=== PATIENT | male | born 1975 | race Caucasian/White ===

== ENCOUNTER 2021-08-23 13:13 | Outpatient (CLI) | payer MEDICARE, SELFPAY ==
[2021-08-23 14:31] LABS: INR 10.52 (0.8-1.2)
== END 2021-08-23 13:14 | disposition home or self-care (01) ==
LOC: LAB 13:21
PROVIDERS: PCP Family Medicine; Visit Provider Family Medicine
DX: T14.8XXA Other injury of unspecified body region, initial encounter (principal); X58.XXXA Exposure to other specified factors, initial encounter
CPT/HCPCS: 85610

== ENCOUNTER 2021-09-11 16:38 | Emergency (ER) | payer MEDICARE, SELFPAY ==
[2021-09-11 16:48] VITALS: BP 126/77; PULSE 69; RESP 14; TEMP 36.7; O2SAT 97; BMI 29.8
--- NOTE | 2021-09-11 17:20 | W.ED.AMS ---
HPI - Altered Mental Status General: Chief Complaint: Altered Mental Status Stated Complaint: Confusion, Numbness, slurred speech Time Seen by Provider: 09/11/21 17:20 History of Present Illness: Mr. Collins is a 46-year-old gentleman with history of stroke and epilepsy who presents to the emergency department due to mental status change. He is accompanied by significant other who provide supplemental history. He was on Coumadin until a while ago when COVID affected his ability to manage INR levels and he was significantly supratherapeutic so has been off anticoagulation since that time. Starting Friday he began to have episodes of confusion or staring off during conversation and taking an extended period of time to respond. Apparently this is similar to his prior stroke as he did not have weakness or other focal findings on the previous stroke. Overall course of symptoms has persisted. Patient does endorse headache which is frontal in nature and moderate intensity though he frequently gets headaches since stroke and this is not significantly different. Denies infectious symptoms or neck pain. No other specific changes in health, exacerbating, or alleviating factors identified. Onset (ago): day(s) Severity: moderate Consistency of symptoms: Waxing and Waning Review of Systems General: Reports: 10 or more systems reviewed and unremarkable except in HPI and below PFSH ED PFSH: Medical History (Updated 09/19/21 @ 00:00 by ) Epilepsy Stroke Surgical History (Updated 09/11/21 @ 18:23 by Dao Nagel MD) History of orthopedic surgery Social History (Updated 09/11/21 @ 18:23 by Doa Nagel MD) Smoking and tobacco status: current every day smoker Physical Exam Const: COMMON NORMALS: patient oriented x3 and alert GENERAL APPEARANCE: cooperative and well developed HENMT: COMMON NORMALS: normocephalic and atraumatic HEAD & SCALP: normocephalic and atraumatic Eye: COMMON NORMALS: conjunctivae normal CONJUNCTIVA: Yes conjunctivae normal SCLERA: sclerae normal Neck/C-Spine: COMMON NORMALS: supple GENERAL: Yes trachea midline Resp: COMMON NORMALS: normal respiratory effort and clear to auscultation bilaterally EFFORT & INSPECTION: Yes able to speak in complete sentences AUSCULTATION: clear to auscultation bilaterally Cardio: COMMON NORMALS: regular rate and regular rhythm RATE: regular rate RHYTHM: regular rhythm GI: COMMON NORMALS: Soft to palpation PALPATION: Yes Soft to palpation and No Tenderness to palpation present (GI) PERCUSSION: normal to percussion Extremity: GENERAL: Yes normal exam except as noted and No edema Neuro: COMMON NORMALS: patient oriented x3, CN's II-XII intact bilaterally, moves all extremities, no focal motor deficits and no sensory deficits noted SENSORIUM/ORIENTATION: Yes alert and No Orientation impaired Psych: COMMON NORMALS: mental status grossly normal and Normal thought process present THOUGHT PROCESS: Normal thought process present Course ED course: - Patient was seen and evaluated by me at bedside - Patient placed on cardiac monitors, IV access obtained - Initial evaluation notable for exam as above. - Labs personally interpreted by me -Fluids and symptom treatment ordered - Labs notable for no leukocytosis, normal hemoglobin. Metabolic panel with perhaps mild evidence of dehydration. No clear explanation for patient's symptoms. - Imaging notable for no acute finding on head CT. - Upon serial reexamination after treatment the patient was significantly improved - Based on patient history, evaluation, and testing as interpreted the most likely cause of the patient's condition is unclear. Possibly related to complex migraine - The results of ED evaluation were discussed with the patient including prescriptions and/or symptomatic cares (if applicable) including appropriate and responsible use, followup plan, and return precautions. The patient verbalized understanding and felt safe for discharge. - Patient discharged in satisfactory condition. Note: Click bubbles or prepopulated lockwood in note writing are used for assistance with data collection and billing and are inherently more limited than narrative and other text portions of this note. Please use narrative for additional clinical history and defer to narrative/free test for any case of contradictory information. If information appears in only free text or click bubble it should be considered present or absent as reported. Please contact note loan underwriter for clarifications of clinical information or contradictory information. MDM is a brief summary, contradictory or erroneous seeming information should be clarified and full note should be reviewed. Vital Signs: Vital signs: Vital Signs Temperature 98.1 F 09/11/21 16:48 Pulse Rate 69 09/11/21 16:48 Respiratory Rate 14 09/11/21 16:48 Blood Pressure 126/77 09/11/21 16:48 Pulse Oximetry 97 09/11/21 16:48 MDM - Altered Mental Status Medical Decision Making 46-year-old gentleman with complex past medical history presenting with headache and other neurologic symptoms. Exam is nonfocal on evaluation. Patient not a tPA candidate given duration of symptoms. Patient significantly improved with migraine cocktail and feels comfortable with discharge. Strict return precautions and follow-up plan given. Medical Records I reviewed the patient's medical records. Lab Data I reviewed the patient's lab results. : 09/11/21 18:00 09/11/21 18:[address] 09/11/21 17:42 IMPRESSION: 1. Old infarcts as described. 2. No acute intracranial finding Laboratory Results WBC 5.0 10^3/uL (4.0-10.0) 09/11/21 18:00 RBC 4.19 10^6/uL (4.1-5.3) 09/11/21 18:00 Hgb 12.6 g/dL (11.7-16.6) 09/11/21 18:00 Hct 36.5 % (42.0-52.0) L 09/11/21 18:00 MCV 87.1 fl (80-94) 09/11/21 18:00 MCH 30.1 pg (28.0-34.0) 09/11/21 18:00 MCHC 34.5 g/dL (30.0-36.0) 09/11/21 18:00 RDW 13.2 % (12.1-15.1) 09/11/21 18:00 Plt Count 146 10^3/cmm (130-400) 09/11/21 18:00 MPV 9.8 fL (7.4-10.4) 09/11/21 18:00 Neut % (Auto) 74.0 % 09/11/21 18:00 Lymph % (Auto) 18.2 % 09/11/21 18:00 Miner % (Auto) 6.0 % 09/11/21 18:00 Eos % (Auto) 1.2 % 09/11/21 18:00 Baso % (Auto) 0.2 % 09/11/21 18:00 Neut # (Auto) 3.69 10^3/uL (1.8-7.7) 09/11/21 18:00 Lymph # (Auto) 0.9 10^3/uL (0.8-4.8) 09/11/21 18:00 Miner # (Auto) 0.3 10^3/uL (0.2-0.9) 09/11/21 18:00 Eos # (Auto) 0.1 10^3/uL (0.0-0.8) 09/11/21 18:00 Baso # (Auto) 0.0 10^3/uL (0.0-0.1) 09/11/21 18:00 Nucleated RBC % (auto) 0 % 09/11/21 18:00 Nucleated RBCs # 0.0 /100WBC 09/11/21 18:00 PT 13.60 SECONDS (12.1-14.9) 09/11/21 18:00 INR 1.01 (0.8-1.2) 09/11/21 18:00 APTT 91.2 SECONDS (23.9-36.7) H 09/11/21 18:00 Sodium 141 mmol/L (136-145) 09/11/21 18:00 Potassium 3.8 mmol/L (3.5-5.1) 09/11/21 18:00 Chloride 105 mmol/L (98-107) 09/11/21 18:00 Carbon Dioxide 25 mmol/L (22-29) 09/11/21 18:00 Anion Gap 14.8 (5-19) 09/11/21 18:00 BUN 21 mg/dL (6-20) H 09/11/21 18:00 Creatinine 1.3 mg/dL (0.7-1.2) H 09/11/21 18:00 GFR Calculation 60.0 mL/min (90-130) L 09/11/21 18:00 Glucose 85 mg/dL (65-115) 09/11/21 18:00 POC Glucose 82 mg/dL (70-110) 09/11/21 17:56 Calculated Osmolality 294 mOsm/kg (285-295) 09/11/21 18:00 Calcium 9.2 mg/dL (8.5-10.5) 09/11/21 18:00 Total Bilirubin 0.3 mg/dL (0.15-1.2) 09/11/21 18:00 AST 25 U/L (0-40) 09/11/21 18:00 ALT 36 U/L (0-41) 09/11/21 18:00 Alkaline Phosphatase 102 IU/L (40-130) 09/11/21 18:00 Ammonia 13 umol/L (16-60) L 09/11/21 18:32 Total Protein 6.6 g/dL (6.6-8.7) 09/11/21 18:00 Albumin 4.4 g/dL (3.5-5.2) 09/11/21 18:00 Globulin 2.2 g/dL (1.3-4.6) 09/11/21 18:00 TSH 1.93 uIU/mL (0.27-4.20) 09/11/21 18:00 Urine Color Yellow (Yellow) 09/11/21 19:40 Urine Appearance Clear (CLEAR) 09/11/21 19:40 Urine pH 6 (5-7) 09/11/21 19:40 Ur Specific [place] 1.020 (1.005-1.030) 09/11/21 19:40 Urine Protein Neg (Negative) 09/11/21 19:40 Urine Glucose (UA) Norm (Normal) 09/11/21 19:40 Urine Ketones 1+ (Negative) H 09/11/21 19:40 Urine Blood Neg (Negative) 09/11/21 19:40 Urine Nitrate Negative (Negative) 09/11/21 19:40 Urine Bilirubin Neg (Negative) 09/11/21 19:40 Urine Urobilinogen Norm mg/dL (Negative) 09/11/21 19:40 Ur Leukocyte Esterase Negative (Negative) 09/11/21 19:40 Carbamazepine 8.4 ug/mL (4.0-12.0) 09/11/21 18:00 Discharge Plan Discharge Patient Disposition: Home Clinical Impression: Altered mental status Condition: Stable Discharge Orders: Discharge ED (Routine); Ordered 09/11/21 Ordered By: Dao Nagel Referrals: Bandar Mosley MD [Primary Care Provider] - Discharge Diet: Usual diet Discharge Activity: Limit activity as instructed Patient Instructions: Altered Mental Status (ED) Activity Restrictions/Additional Instructions: Thank you for visiting the emergency department. You were seen evaluated for abnormal neurologic events. The exact cause of the symptoms is unclear. I recommend follow-up with neurology and your primary care provider. It is possible that these are related to focal seizures that require further evaluation though I do not see evidence of seizure currently. If these are breakthrough seizures despite medication you likely need medication adjustment. You should not drive, operate machinery, climb tall objects, cook over open flames, swim, or bathe in a bathtub, or otherwise perform dangerous tasks or you to have another event. Please return to the emergency department for any new neurologic symptoms, seizures, or anything else that you are concerned about a feel needs emergency department evaluation. Coding Level of Care Code ED Heat Treatment Technician for Meet Fwd Exam Comprehensive
--- NOTE | 2021-09-11 17:42 | CTR_ITS ---
PROCEDURE INFORMATION: Exam: CT Head Without Contrast Exam date and time: 09/11/2021 6:55 PM Age: 46 years old Clinical indication: Altered mental status/memory loss; Additional info: AMS, HX of prior CVA and epilepsy TECHNIQUE: Imaging protocol: Computed tomography of the head without contrast. Radiation optimization: All CT scans at this facility use at least one of these dose optimization techniques: automated exposure control; mA and/or kV adjustment per patient size (includes targeted exams where dose is matched to clinical indication); or iterative reconstruction. COMPARISON: MR Head w wo Contrast 09/19/2014 11:18 AM RADIATION DOSE METRICS: Total DLP (mGy-cm): 1066.38 FINDINGS: Brain: There is large chronic right posterior parietal infarct not significantly changed compared with 08/27/2014. There is chronic infarct in the right frontal lobe extending into the right frontal operculum which is new compared with previous examination but chronic. There is no intracranial mass, in appearance hemorrhage or edema. Cerebral ventricles: Ventricles are within normal limits of size. Paranasal sinuses: Visualized sinuses are unremarkable. No fluid levels. Mastoid air cells: Visualized mastoid air cells are well aerated. Bones/joints: No calvarial fracture is demonstrated. Soft tissues: There are calcified subcutaneous scalp lesions, 1 in the left frontal lobe in the other in the right parietal region which are larger than on 09/04/2014. CT/CT head wo con* [id number] IMPRESSION: 1. Old infarcts as described. 2. No acute intracranial finding
--- NOTE | 2021-09-11 17:43 | ECG_ITS ---
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 Measurements Intervals [place] Rate: 64 P: 31 MI: 156 QRS: -1 QRSD: 97 T: -10 QT: 372 QTc: 384 Interpretive Statements SINUS RHYTHM LOW QRS VOLTAGE IN PRECORDIAL LEADS [QRS DEFLECTION < 1.0 mV IN CHEST LEADS] NONSPECIFIC T-WAVE ABNORMALITY Compared to ECG 09/04/2014 22:16:38 Low QRS voltage now present T-wave abnormality now present Electronically Signed On 09-12-2021 17:58:39 CDT by Paul Pink M.D. [id number] f
[2021-09-11 18:19] LABS: Basophils % 0.2 %; Eosinophils # 0.1 10^3/uL (0.0-0.8); Eosinophils % 1.2 %; Hematocrit 36.5 % (42.0-52.0); Hemoglobin 12.6 g/dL (11.7-16.6); Lymphocytes # 0.9 10^3/uL (0.8-4.8); Lymphocytes % 18.2 %; Mean Corpuscular HGB Conc 34.5 g/dL (30.0-36.0); Mean Corpuscular Hemoglobin 30.1 pg (28.0-34.0); Mean Corpuscular Volume 87.1 fl (80-94); Mean Platelet Volume 9.8 fL (7.4-10.4); Monocytes # 0.3 10^3/uL (0.2-0.9); Neutrophils # 3.69 10^3/uL (1.8-7.7); Nucleated Red Blood Cells % 0 %; Platelet Count 146 10^3/cmm (130-400); Red Blood Count 4.19 10^6/uL (4.1-5.3); Red Cell Distribution Width 13.2 % (12.1-15.1)
[2021-09-11 18:29] LABS: INR 1.01 (0.8-1.2)
[2021-09-11 18:39] LABS: Partial Thromboplastin Time 91.2 SECONDS (23.9-36.7)
[2021-09-11 18:47] LABS: Alanine Aminotransferase 36 U/L (0-41); Albumin Level 4.4 g/dL (3.5-5.2); Alkaline Phosphatase 102 IU/L (40-130); Anion Gap 14.8 (5-19); Aspartate Amino Transferase 25 U/L (0-40); Blood Urea Nitrogen 21 mg/dL (6-20); Calcium 9.2 mg/dL (8.5-10.5); Carbon Dioxide 25 mmol/L (22-29); Chloride 105 mmol/L (98-107); Globulin 2.2 g/dL (1.3-4.6); Glucose 85 mg/dL (65-115); Osmolality Calculated 294 mOsm/kg (285-295); Potassium 3.8 mmol/L (3.5-5.1); Sodium 141 mmol/L (136-145); Thyroid Stimulating Hormone 1.93 uIU/mL (0.27-4.20); Total Bilirubin 0.3 mg/dL (0.15-1.2); Total Protein 6.6 g/dL (6.6-8.7)
[2021-09-11 18:54] LABS: Ammonia 13 umol/L (16-60)
[2021-09-11 20:01] LABS: Add Urine Microscopic? NO; Charge for UA Resulting for Rev
[2021-09-11 20:08] LABS: Urine Appearance Clear (CLEAR); Urine Color Yellow (Yellow)
[2021-09-11 20:09] LABS: Bilirubin Urine Neg (Negative); Blood Urine Neg (Negative); Glucose Urine UA Norm (Normal); Ketones Urine 1+ (Negative); Leukocyte Esterase Urine Negative (Negative); Nitrate Urine Negative (Negative); Protein Urine Neg (Negative); Urobilinogen Urine Norm (Negative); pH Urine 6 (5-7)
[2021-09-11] MEDS: sodium chloride 0.9% 1,000 ML 999 ML IV (21:00)
[2021-09-11] MEDS: ketorolac 30 mg/mL INJ 15 MG IVP (21:00)
[2021-09-11] MEDS: diphenhydrAMINE 50 mg/mL SDV 1mL 25 MG IVP (21:00)
[2021-09-11] MEDS: metoclopramide 5 mg/mL SDV 2 mL 10 MG IVP (21:02)
[2021-09-11 21:03] LABS: Carbamazepine Tegretol 8.4 ug/mL (4.0-12.0)
[2021-09-12 06:45] LABS: Glucose Point of Care 82 mg/dL (70-110)
== END 2021-09-11 22:07 | disposition home or self-care (01) ==
PROVIDERS: Emergency Provider Emergency Medicine; PCP Family Medicine
DX: R41.82 Altered mental status, unspecified (principal); Z86.73 Personal history of transient ischemic attack (TIA), and cerebral infarction without residual deficits; F17.210 Nicotine dependence, cigarettes, uncomplicated
CPT/HCPCS: 36416; 70450; 80053; 80156; 81003; 82140; 82962; 84443; 85025; 85610; 85730; 93005; 96374; 96375; 99285; J1200; J1885; J2765; J3475; J7030

== ENCOUNTER → 2021-11-05 10:03 | Outpatient (BNVA) | payer MEDICARE, SELFPAY | PROVIDERS: PCP Family Medicine; Visit Provider Internal Medicine Cardiovascular Disease | DX: I34.0 Nonrheumatic mitral (valve) insufficiency (principal); Z86.69 Personal history of other diseases of the nervous system and sense organs; Z86.73 Personal history of transient ischemic attack (TIA), and cerebral infarction without residual deficits; R23.3 Spontaneous ecchymoses; I33.0 Acute and subacute infective endocarditis; I77.9 Disorder of arteries and arterioles, unspecified; E78.5 Hyperlipidemia, unspecified; Z87.891 Personal history of nicotine dependence | CPT/HCPCS: 99204 ==

== ENCOUNTER 2021-12-06 12:15 | Outpatient (CLI) | payer MEDICARE, SELFPAY ==
--- NOTE | 2021-12-06 12:36 | MR_ITS ---
WS: [id number] MRI HEAD WITHOUT CONTRAST TECHNIQUE: Sagittal T1, T2 axial, T2 axial FLAIR, axial and coronal T1 images, axial susceptibility w eighted imaging, axial diffusion weighted images, and coronal T2 images were obtained. CLINICAL INFORMATION: CVA COMPARISON: CT September 11, 2021. MRI September 19, 2014 FINDINGS: No evidence of restricted diffusion to suggest acute ischemia. Ventricular system and basal cisterns are patent. Chronic infarcts with encephalomalacia and gliosis involving the RIGHT frontal lobe near the vertex and RIGHT parietal occipital lobe with encephalomalacia and gliosis. Small amount of asso ciated hemosiderin in the RIGHT parietal infarct. Mild ex vacuo dilatation RIGHT lateral ventricle. R IGHT frontal infarct is new since 2014 but has a chronic appearance. Normal posterior fossa. Normal v ascular flow voids at the skull base. No extra Axial fluid collections. Paranasal sinuses and mastoid air cells well aerated. Normal tile layer drainage ior nasopharynx. Normal parapharyngeal fat. Normal optic chiasm and pituitary infundibulum. Temporal lobes and hippocampal formations are normal in appearance. MR/MR head wo con* [id number] IMPRESSION: 1. No evidence of restricted diffusion to suggest acute ischemia 2. Moderate small vessel changes with moderate parenchymal volume loss. 3. Chronic infarcts in the RIGHT frontal lobe and RIGHT parietal occipital ad ction extending into the superior RIGHT temporal lobe. Small amount of associat ed hemosiderin. Associated encephalomalacia and gliosis. 4. RIGHT frontal infarct is new since 2014 but has a chronic appearance. This was present on the prior CT September 11, 2021 and likely subacute at that time. 5. Ex vacuo dilatation RIGHT lateral ventricle. 6. No other suspicious findings.
== END 2021-12-06 12:16 | disposition home or self-care (01) ==
PROVIDERS: PCP Family Medicine; Visit Provider Family Medicine
DX: I63.9 Cerebral infarction, unspecified (principal)
CPT/HCPCS: 70551

== ENCOUNTER 2021-12-26 13:06 | Outpatient (CLI) | payer MEDICARE, SELFPAY ==
--- NOTE | 2021-12-26 13:30 | USCV_ITS ---
Maikel Collins Age: 46 Gender: M : 1975 Exam Date: 12/26/2021 13:48 Ordering Phys: Candido Sanchez MD ([email or web address]) Technologist: BARON [place] [facility] [place]: MITRAL REGURG/VEGITATION BP: 139 / 85 HR: 35 Rhythm: Sinus Technical Quality: Adequate MEASUREMENTS (Male / Female) Normal Values 2D ECHO LVOT Diameter 2.0 cm LV Ejection Fraction MOD 2C 61.0 % LV Ejection Fraction 2C AL 61.7 % LA Diameter 3.8 cm LA Width 4.7 cm LA Height 4.8 cm RA Width 3.3 cm RA Height 5.3 cm Aorta at Sinotubular Diameter 2.6 cm IVC Diameter 2.1 cm M-MODE Aortic Annulus Diameter 2.8 cm LA Ao Ratio MM 1.3 MV E Point Septal Separation 0.3 cm DOPPLER AV Peak Velocity 143.0 cm/s LVOT Peak Velocity 119.0 cm/s AV Area Cont Eq vti 2.8 cm squared AV Area Cont Eq pk 2.6 cm squared MV Peak Velocity 150.0 cm/s MV Area PHT 3.1 cm squared Mitral E to A Ratio 1.3 MV E' Velocity 75.0 cm/s Mitral E to MV E' Ratio 10.7 Mitral E to LV E' Lateral Ratio 9.2 Mitral E to LV E' Septal Ratio 13.0 TR Peak Velocity 244.5 cm/s TR Peak Gradient 23.9 mmHg TR Mean Velocity 246.8 cm/s TR Mean Gradient 24.8 mmHg TR Velocity Time Integral 98.7 cm TV Peak E Velocity 67.0 cm/s Right Atrial Pressure 3.0 mmHg Pulmonary Artery Systolic Pressu 26.9 mmHg PV Peak Velocity 132.0 cm/s RV Acceleration Time 0.2 s RV Ejection Time 0.3 s RV AcT/ET 0.6 FINDINGS Left Ventricle Normal left ventricular size and systolic function, EF 64 %. No regional wall motion abnormalities. Right Ventricle The right ventricle is normal in size and function. Right Atrium The right atrium is normal in size. Left Atrium Mildly increased left atrial size. Mitral Valve Possibly severe mitral valve regurgitation. Aortic Valve No gross abnormalities noted Tricuspid Valve Trace tricuspid valve regurgitation. Pulmonic Valve Trace pulmonary valve regurgitation. Pericardium Normal pericardium without effusion. Aorta Normal ascending aorta dimension. IVC Normal inferior vena cava. CONCLUSIONS Normal left ventricular size and systolic function, EF 64 %. No regional wall motion abnormalities. Mildly increased left atrial size. Possibly severe mitral valve regurgitation. Trace tricuspid valve regurgitation. Estimated pulmonary artery peak systolic pressure of 27 mmHg Trace pulmonary valve regurgitation. There is no pericardial effusion. There are no intracardiac masses. Compared to the study from 03/11/2014 there is worsening of the mitral regurgitation Dr Candido Sanchez MD [facility] (Electronically Signed) Final Date: 27 December 2021 21:57 S
--- NOTE | 2021-12-26 14:15 | USCV_ITS ---
Maikel Collins Age: 46 Gender: M : 1975 Exam Date: 12/26/2021 13:34 Ordering Phys: Candido Sanchez MD ([email or web address]) Technologist: BARON Exam Location: [facility] [place] Indication: CURRENT CVA Risk Factors: Previous Vascular Surgery: Right Brachial BP: / Left Brachial BP: / Right Left Velocity (cm/s) Spectral Plaque Velocity (cm/s) Spectral Plaque Syst/Diast Broadening Syst/Diast Broadening 112.80/28.20 Prox CCA 152.70/ 27.20 119.10/36.40 Mid CCA 158.50/ 41.90 106.90/25.40 Distal CCA 118.00/ 33.10 59.50/ 25.40 Prox ICA 83.00 / 27.30 97.60/ 33.50 Mid ICA 86.30 / 31.00 59.20/ 17.70 Distal ICA 89.10 / 34.70 110.30 ECA 112.40 0.82 ICA/CCA 0.56 Antegrade Vertebral Antegrade 62.40/ 15.40 cm/s 65.10/ 15.40 cm/s Tri Subclavian Tri 127.9 163.5 0 0 FINDINGS Intimal thickening at the bifurcations and common carotid arteries bilaterally antegrade flow in the vertebral arteries bilaterally Normal Doppler flow velocities in the external carotid and subclavian arteries bilaterally CONCLUSIONS Intimal thickening at the bifurcations and common carotid arteries bilaterally . No unstable plaques or lesions based on the above findings Dr Candido Sanchez MD [facility] (Electronically Signed) Final Date: 31 December 2021 07:28 S
== END 2021-12-26 13:07 | disposition home or self-care (01) ==
LOC: RAD 13:07
PROVIDERS: PCP Family Medicine; Visit Provider Internal Medicine Cardiovascular Disease
DX: Z86.73 Personal history of transient ischemic attack (TIA), and cerebral infarction without residual deficits (principal); I77.9 Disorder of arteries and arterioles, unspecified; I33.0 Acute and subacute infective endocarditis; R06.09 Other forms of dyspnea; I65.23 Occlusion and stenosis of bilateral carotid arteries; I08.1 Rheumatic disorders of both mitral and tricuspid valves
CPT/HCPCS: 93306; 93880

== ENCOUNTER → 2022-01-22 10:57 | Outpatient (BNVA) | payer MEDICARE, SELFPAY | PROVIDERS: PCP Family Medicine; Visit Provider Internal Medicine Cardiovascular Disease | DX: I34.0 Nonrheumatic mitral (valve) insufficiency (principal); E78.5 Hyperlipidemia, unspecified; G40.909 Epilepsy, unspecified, not intractable, without status epilepticus; Z86.73 Personal history of transient ischemic attack (TIA), and cerebral infarction without residual deficits; Z87.891 Personal history of nicotine dependence | CPT/HCPCS: 99214 ==

== ENCOUNTER 2022-01-25 09:59 | Day surgery (SDC) | payer MEDICARE, SELFPAY ==
[2022-01-23 13:58] VITALS: BMI 31.8
--- NOTE | 2022-01-25 10:09 | USCV_ITS ---
Dennis Maikel Age: 47 Gender: M : 1975 Exam Date: 01/25/2022 11:37 Ordering Phys: Candido Sanchez MD ([email or web address]) Technologist: BARON [place] [facility] [place]: EVAL MITRAL REGURG AND VEGETATIONS BP: 110 / 81 HR: Rhythm: Sinus Technical Quality: Adequate MEASUREMENTS (Male / Female) Normal Values Medications IV propofol, administered with anesthesia service Complications None Proc. Components The patient was brought to the TONG examination room in a fasting state after obtaining an informed consent. The TONG probe was passed into the posterior pharynx , mid-esophagus, distal esophagus, and gastric fundus. TONG was performed at multiple levels. The patient tolerated the procedure well and there were no complications. FINDINGS Left Ventricle Appears to be normal size and ejection fraction. Right Ventricle Normal right ventricular size and systolic function. Right Atrium Normal right atrial size. Left Atrium Moderately increased left atrial size. LA Appendage Normal size and contractility IA Septum Appears to be intact with no evidence of any ASD or PFO by color-flow Doppler examination or by contrast injection. Mitral Valve The PISA radius was 0.98cm. The effective orifice area was 0.41 cm squared. Mitral regurgitant flow r rate was 225 mL/s . The MR flow volume was 81 mL. Moderately severe mitral regurgitation based on the color-flow. No flow reversal in the pulmonic vein. Mild prolapse of the A2, P2 and P3 scallops Aortic Valve Structurally normal trileaflet aortic valve. No significant stenotic or regurgitant lesions. Tricuspid Valve Mild tricuspid valve regurgitation. Pulmonic Valve No gross abnormalities noted Pericardium No pericardial effusion. Aorta Normal aortic annulus size. CONCLUSIONS 1. Features of moderately severe mitral regurgitation. Mild prolapse of the A2, P2 and P3 scallops 2. Mild tricuspid regurgitation. 3. Normal LV size ejection fraction. 4. Moderately dilated left atrium. 5. Intact interatrial septum with no evidence of ASD or patent foramen ovale, based on the color-flow Doppler examination or saline contrast injection 6. Normal left atrial appendage size and contractility 7. No intracardiac masses. Dr Candido Sanchez MD [facility] (Electronically Signed) Final Date: 29 January 2022 10:06 S
[2022-01-25 10:25] VITALS: BP 116/79; PULSE 57; RESP 18; TEMP 36.4; O2SAT 98
[2022-01-25] MEDS: sodium chloride 0.9% 1,000 ML 30 ML IV (10:34)
--- NOTE | 2022-01-25 10:42 | ANES.PREANE2 ---
Pre-Anesthetic Assessment Height/Weight: Height 1.8 m Weight 103.419 kg Temp Pulse Resp BP Pulse Ox O2 Del Method 97.6 F 57 L 18 116/79 98 01/25/22 10:25 01/25/22 10:25 01/25/22 10:25 01/25/22 10:25 01/25/22 10:25 01/25/22 10:25 Operation Date: 01/25/22 11:30 Proposed Procedures p TONG 01276,I33.0(Not Applicable) - Candido Sanchez MD Familial anesthetic complications: None Was Beta Nicky taken within 24 hours: N/A Was Clonidine taken within 24 hours: N/A Last intake: Intake Last Liquid Date 01/24/22 Last Liquid Time 22:00 Last Solid Date 01/24/22 Last Solid Time 22:00 Social No alcohol and No tobacco former smoker Exam alert, oriented x 3, clear to auscultation bilaterally and regular rate & rhythm Airway Mallampati: Class II Dentition: full CV/HEM Mitral valve regurge (possibly severe) shown on echo Metabolic Hyperlipidemia Neuropsych Cerebrovascular Accident (Residual vision and memory deficits) Anesthetic Plan ASA status: 3 Anesthesia: MAC Risk of > 500 ml blood loss (7ml/kg in children): No Medications/Allergies Home Medications Medication Instructions Recorded Confirmed Last Taken Type atorvastatin 40 mg tablet 40 mg PO DAILY 11/01/21 01/23/22 01/23/22 History carbamazepine 200 mg tablet 400 mg PO BID 11/01/21 01/23/22 01/24/22 History clotrimazole 1 % topical cream 1 applic topical BID PRN antifungal 11/01/21 01/23/22 01/23/22 History aspirin 81 mg tablet,delayed 81 mg PO DAILY 11/05/21 01/23/22 01/24/22 History release (Adult Low Dose Aspirin) Allergies Allergy/AdvReac Type Severity Reaction Status Date / Time biaxin Allergy Unknown Unknown Uncoded 01/22/22 07:37 Erythromycin Allergy Unknown Unknown Uncoded 01/22/22 07:37 Current Medications Generic Name Dose Route Start Last Admin Trade Name Freq PRN Reason Stop Dose Admin Sodium Chloride 1,000 mls @ 30 mls/hr 01/25/22 10:15 01/25/22 10:34 Sodium Chloride 0.9% IV 01/26/22 10:14 30 mls/hr .Q24H WALDO Administration PFSH Anesthesia Medical History Easy bruising Epilepsy Heart valve vegetation Stroke Surgical History History of orthopedic surgery Family History Grandfather CAD (coronary artery disease) Chronic kidney disease (CKD) Stroke Family/Other CAD (coronary artery disease) Cancer Diabetes Grandmother Dementia Denies family history of Clotting disorder Suicide Anesthesia complication Bleeding disorder Lung disease Social History Smoking and tobacco status: former smoker (quit a month ago ) Alcohol intake: never Data Anesthesia Cardiac Studies: Echocardiogram 12/26/21
--- NOTE | 2022-01-25 11:21 | W.PM.OPSUD ---
Surgery/Procedure H&P Update DATE OF PROCEDURE: January 25, 2022 DATE H&P PERFORMED: 01/22/22 H&P UPDATE INFORMATION: I have reviewed H&P completed within last 30 days, I have examined patient prior to procedure and No changes to prior documentation PREOP DIAGNOSIS: Severe mitral regurgitation PRIMARY INDICATION FOR PROCEDURE: Mitral regurgitation PLANNED PROCEDURE: Operation Date: 01/25/22 11:30 Proposed Procedures p TONG 90235,I33.0(Not Applicable) - Candido Sanchez MD
[2022-01-25 12:01] VITALS: BP 94/53; PULSE 64; RESP 16; TEMP 36.1; O2SAT 96
[2022-01-25 12:14] VITALS: BP 99/60; PULSE 52; RESP 16; O2SAT 99
[2022-01-25 12:23] VITALS: BP 108/76; PULSE 49; RESP 18; O2SAT 98
--- NOTE | 2022-01-25 12:43 | ANE.PACU2 ---
Inpatient post-anesthesia follow up: Airway intact: Yes Vital signs: Temperature 97 F Pulse Rate 49 Respiratory Rate 18 Blood Pressure 108/76 Pulse Oximetry 98 Oxygen Delivery Me thod Room Air Oxygen Flow Rate 2 Fraction of Inspir ed Oxygen Hydration adequate: Yes Nausea and vomiting: No Pain level: 1 Mental status: Baseline
== END 2022-01-25 12:50 | disposition home or self-care (01) ==
PROVIDERS: PCP Family Medicine; Visit Provider Internal Medicine Cardiovascular Disease
PROC: (CPT 93312; principal; 2022-01-25 11:30)
DX: I34.0 Nonrheumatic mitral (valve) insufficiency (principal); Z87.891 Personal history of nicotine dependence; E78.5 Hyperlipidemia, unspecified; Z86.73 Personal history of transient ischemic attack (TIA), and cerebral infarction without residual deficits; Z79.82 Long term (current) use of aspirin
CPT/HCPCS: 93312; 93320; 93325; J2704; J7030

== ENCOUNTER 2022-02-15 10:11 | Outpatient (CLI) | payer MEDICARE, SELFPAY ==
[2022-02-15 10:44] LABS: Basophils % 0.8 %; Eosinophils # 0.1 10^3/uL (0.0-0.8); Eosinophils % 3.1 %; Hemoglobin 14.4 g/dL (11.7-16.6); Lymphocytes # 1.1 10^3/uL (0.8-4.8); Lymphocytes % 27.3 %; Mean Corpuscular HGB Conc 34.3 g/dL (30.0-36.0); Mean Corpuscular Hemoglobin 29.1 pg (28.0-34.0); Mean Platelet Volume 10.2 fL (7.4-10.4); Monocytes # 0.3 10^3/uL (0.2-0.9); Monocytes % 6.7 %; Neutrophils # 2.41 10^3/uL (1.8-7.7); Neutrophils % 62.1 %; Nucleated Red Blood Cells % 0 %; Platelet Count 114 10^3/cmm (130-400); Red Blood Count 4.94 10^6/uL (4.1-5.3); Red Cell Distribution Width 12.1 % (12.1-15.1); White Blood Count 3.9 10^3/uL (4.0-10.0)
[2022-02-15 11:13] LABS: Anion Gap 14.2 (5-19); Blood Urea Nitrogen 22 mg/dL (6-20); Calcium 9.2 mg/dL (8.5-10.5); Carbon Dioxide 23 mmol/L (22-29); Chloride 107 mmol/L (98-107); Glomerular Filtration Rate 72.4 mL/min (90-130); Glucose 136 mg/dL (65-115); NT Pro B Type Natriuretic Pept 77 pg/mL (0-125); Osmolality Calculated 295 mOsm/kg (285-295); Potassium 4.2 mmol/L (3.5-5.1); Sodium 140 mmol/L (136-145)
== END 2022-02-15 10:12 | disposition home or self-care (01) ==
LOC: LAB 10:12
PROVIDERS: PCP Family Medicine; Visit Provider Internal Medicine Cardiovascular Disease
DX: I33.0 Acute and subacute infective endocarditis (principal); I34.0 Nonrheumatic mitral (valve) insufficiency; I63.9 Cerebral infarction, unspecified; I77.9 Disorder of arteries and arterioles, unspecified; Z86.73 Personal history of transient ischemic attack (TIA), and cerebral infarction without residual deficits; E78.5 Hyperlipidemia, unspecified; R23.3 Spontaneous ecchymoses; Z01.812 Encounter for preprocedural laboratory examination
CPT/HCPCS: 36415; 80048; 83880; 85025; 86850; 86900

== ENCOUNTER 2022-02-18 06:55 | Outpatient (CLI) | payer MEDICARE, SELFPAY ==
[2022-02-18] VITALS (16 sets, daily range): BP systolic 103–122; BP diastolic 68–83; PULSE 52–69; RESP 12–19; TEMP 36.8; O2SAT 94–98; BMI 31.8
--- NOTE | 2022-02-18 07:30 | XACV_ITS ---
Exam Room: 2 Ht: 180 cm Wt: 103 kg BSA: 2.31 m2 Gender: Male : 1975 Any Known Allergies: Other Exam Priority: Routine Procedure(s): Procedure Description: Diagnostic procedure Procedure Description: Left ventriculography Daniel PERRY; Diagnostic Cath Status: Elective Diagnostic Findings * The left main is a medium caliber elongated vessel with no significant stenotic lesions. * The left anterior descending artery is a medium caliber vessel which was found to be wrapping around the LV apex minimally. No significant stenotic lesions were noted in the left. * The left circumflex artery is a medium caliber nondominant vessel with no significant obstructive lesions. * The intermedius artery is a small caliber, high obtuse marginal vessel with no significant stenotic lesions. * The right coronary artery is a medium caliber dominant vessel with no significant stenotic lesions. It appears to have a posterior takeoff. Conclusions 1. 47-year-old white male with a history of mitral valve disease, was found to have possibly severe mitral regurgitation by transthoracic echocardiogram. He mainly present with complaints of dyspnea on exertion and fatigue. He had a transesophageal echocardiogram which revealed moderately severe mitral regurgitation. In view of the patient's symptoms of shortness of breath and fatigue, to further evaluate the valve function, coronary arteries and the hemodynamics, a cardiac catheterization was recommended. Patient underwent left heart catheterization with left and right coronary angiogram and LV angiogram today. The findings are as follows. . 2. The coronary angiogram revealed no significant obstructive coronary artery disease. He has a right dominant circulation. The right coronary artery appears to have a posterior takeoff. The LVEDP was 23 before the LV angiogram which went up to 26 following the LV angiogram, suggesting left-ventricular diastolic dysfunction. The mitral regurgitation appears to be moderate based on the LV angiogram. Interventional RX Recommendation: medical therapy and/or counseling LV EDP: 23 mmHg Ventriculography Ejection Fraction: 65.0 % Left Ventriculography Findings: * The LV gram was performed in the WONG projection. LV cavity appears to be of normal size. The mitral regurgitation appears to be moderate, based on the LV gram. The LVEDP was 23 prior to the LV angiogram, which went up to 26 following the LV angiogram.. Pressures Phase:Rest AO : 83 / 57 ( 70 ) @ 8:49:00 AM 80 / 59 ( 71 ) @ 8:57:00 AM 118 / 69 ( 91 ) @ 9:04:00 AM 131 / 68 ( 90 ) @ 9:04:00 AM LV : 105 / -9 / 14 @ 9:01:00 AM 118 / -1 / 23 @ 9:02:00 AM 120 / 6 / 26 @ 9:04:00 AM 121 / 5 / 26 @ 9:04:00 AM Valves Phase:DefaultPhase AV : 2.0 @ 9:21:26 AM AV Mean Gradient: 14.0 @ 9:21:26 AM 14.0 @ 9:21:26 AM Clinical Evaluation EBL: 5mL-10mL Procedural Details Procedure Consent Obtained. Admit Source: Out Patient. Pre-Procedure Time Out. Identified patient by full name and date of as verbalized by the patient/guarantor. Does the consent match the physician's order: Yes. Accurate & Complete Informed Consent: Yes. Inpatient/Outpatient History & Physical on Chart: Yes. If H&P is completed, is and addenduem needed: No; If yes, is the addendum complete: N/A. Visualize and Verify Site with Patient/Guarantor: N/A. Relevant Radiology Images available: N/A. The risks, benefits, and alternatives of sedation and/or procedure were discussed by physician. The patient agrees to continue. Procedure started. [facility] Clinical Fraility Score: 3: Managing Well. Director Of Compliance Indications: Valvular Disease. Chest Pain Symptom Assessment: Non-anginal Chest Pain. Cardiovascular Instability: No. Correct patient, site and procedure confirmed by cath team. PERRLA. Strong, equal hand artist and repertoire manager bilaterally. Lungs clear x 5 lobes. IV Site on Arrival: 20 gauge in the right anticubital. IV Fluids: 0.9% NaCl at KVO. 0 mL infused prior to lab technologist. Pre Procedural Pulses: right dorsalis pedis was 3+. Pre Procedural Pulses: left dorsalis pedis was 1+. Pre Procedural Pulses: bilateral posterior tibial was 2+. Pre Procedural Pulses: bilateral radial was 3+. Oxygen started at 2liters/min via nasal canula. right groin was prepped with chloroprep then draped in the usual sterile fashion. right radial was prepped with chloroprep then draped in the usual sterile fashion. Physician notified. Baseline sample Acquired. HR: 59 BPM. Physician arrived. Physician scrubbed in. Immediate Pre-Procedure Time Out. Correct Patient: Yes; Correct Procedure: Yes; Correct Site: Yes; Correct Patient Position: Yes; Correct Supplies: Yes; Dried Flammable Prep: Yes; Blood Products Available: N/A;. Lidocaine 1% infiltrated to the right radial. Arterial access obtained. A 5 greek Torsten catheter in over wire. Multiple views taken of left coronary artery. Catheter removed over the exchange wire. A 5 greek JR4 catheter in over wire. Multiple views taken of right coronary artery. Catheter removed over the exchange wire. A 5 greek Angled Pig catheter in over wire. EDP Sample taken: LV 118/-2,23; HR: 60 BPM; SpO2: 98%. LV gram performed in WONG @ 12 mL/second for a total of 36 mL. Patient EF: Normal. EDP Sample taken: LV 120/6,26; HR: 62 BPM; SpO2: 98%. Pullback taken: LV 121/5,26; AO 118/69(91); Mean: 14mmHg, Peak to Peak: 2mmHg, SEP: 6sec/min; HR: 63 BPM; SpO2: 98%. Physician review of cine films. A TR Band was successful obtaining hemostatsis at the Right Radial artery insertion site. Post Procedure: Pulses reassessed and unchanged. PERRLA. Strong, equal hand artist and repertoire manager bilaterally. No VTE prophylaxis required. Medication's Wasted: Lidocaine 1% = 4 mL. Medication's Wasted: Nitro = 50 mg. Medication's Wasted: Heparin = 1000 units. Medication's Wasted: Other = Fentanyl 50 mcg. Total IV fluids: 271 mL. Complications: none. Estimated blood loss: 5mL-10mL. Responsiveness - Normal response to verbal stimuli; alert and oriented, PERRLA. Airway - Unaffected, no intervention required; spontaneous ventilation. Circulation: W/N/L, pulses unchanged. Circulation: W/N/L, pulses unchanged. Nausea/Vomiting: No. Procedure completed. Patient transferred by wheelchair to CPRU. Vital chart was stopped. Access Site Site: Right Radial artery Sheath Size: 6 Fr Hemostasis Method: TR Band Hemostasis Success: Successful Procedure Medications Start: 8:39 AM Stop: 8:39 AM Medication: Versed Amount: 1 mg Route: I.V. Start: 8:40 AM Stop: 8:40 AM Medication: Fentanyl Amount: 50 mcg Route: I.V. Start: 8:45 AM Stop: 8:45 AM Medication: Versed Amount: 1 mg Route: I.V. Start: 8:46 AM Stop: 8:46 AM Medication: Verapamil Amount: 5 mg Route: I.A. Start: 8:46 AM Stop: 8:46 AM Medication: 0.9% Saline Amount: 250 Route: I.V. bolus Start: 8:48 AM Stop: 8:48 AM Medication: Heparin Amount: 5000 units Route: I.V. I, the attending physician, have reviewed and verified all procedure medications. Yes, all medications given per verbal order History/Risk Factors Hypertension: No Dyslipidemia: Yes Peripheral Arterial Disease (PAD): No Myocardial Infarction (VT): No Obesity: No Tobacco Use: Former Prior Interventions PCI: No CABG: No Valve Surgery: No Report Signatures Finalized by Dr Candido Sanchez MD [facility] on 02/18/2022 06:02 PM
[2022-02-18] MEDS: diphenhydrAMINE 50 mg Capsule PO (07:40)
--- NOTE | 2022-02-18 08:35 | W.PM.OPSUD ---
Surgery/Procedure H&P Update DATE OF PROCEDURE: February 18, 2022 DATE H&P PERFORMED: 01/22/22 H&P UPDATE INFORMATION: I have reviewed H&P completed within last 30 days, I have examined patient prior to procedure and No changes to prior documentation PREOP DIAGNOSIS: Severe mitral regurgitation PRIMARY INDICATION FOR PROCEDURE: mitral regurgitation PLANNED PROCEDURE: Operation Date: 02/18/22 08:30 Proposed Procedures p [id number] Left heart cath R07.9,I33.0,I34.0,I63.9(Left) - Candido Sanchez MD PATIENT REASSESSED PRIOR TO SEDATION, WITH NO CHANGE NOTED: Yes PHYSICAL EXAM: alert, oriented x 3, clear to auscultation bilaterally and regular rate & rhythm AIRWAY EVAL/ANESTHESIA PLAN: normal airway, see other exam findings, ASA II, Monitored Anesthesia, Local Anesthesia, Risks, benefits & alternatives of sedation and/or procedure discussed and Patient agrees to continue as planned
--- NOTE | 2022-02-18 09:43 | PC.NURSE ---
Received pt from labor and delivery nurse post diagnostic left heart cath. Pt alert and oriented x4. TR band on right wrist with distal pulse present. Pt and educated on restrictions of right wrist and both stated understanding. Nurse will continue to educated throughout recovery of right wrist restrictions. Pt placed on vitals monitor and will be monitored per protocol.
--- NOTE | 2022-02-18 09:58 | PC.NURSE ---
IV fluids started at 100ml/hr per physician order.
--- NOTE | 2022-02-18 10:23 | SUR.PHASEII ---
Band Removal began.
--- NOTE | 2022-02-18 11:15 | SUR.PHASEII ---
TR BAND REMOVED.
--- NOTE | 2022-02-18 12:30 | SUR.PHASEII ---
Discharge note Discharg instructions given. Verbalized understanding. Discharged to home via private vehicle. Conditon Stable.
== END 2022-02-18 12:53 | disposition home or self-care (01) ==
PROVIDERS: PCP Family Medicine; Visit Provider Internal Medicine Cardiovascular Disease
DX: I34.0 Nonrheumatic mitral (valve) insufficiency (principal); E78.5 Hyperlipidemia, unspecified; G40.909 Epilepsy, unspecified, not intractable, without status epilepticus; Z86.73 Personal history of transient ischemic attack (TIA), and cerebral infarction without residual deficits; Z86.2 Personal history of diseases of the blood and blood-forming organs and certain disorders involving the immune mechanism; Z79.01 Long term (current) use of anticoagulants; Z87.891 Personal history of nicotine dependence
CPT/HCPCS: 36415; 93458; 96361; 96365; 99152; 99153; C1769; C1887; C1894; J1644; J2250; J3010; J3490; J7030; Q0163; Q9967

== ENCOUNTER → 2022-03-12 09:01 | Outpatient (BNVA) | payer MEDICARE, SELFPAY | PROVIDERS: PCP Family Medicine; Visit Provider Nurse Practitioner Family | DX: I34.0 Nonrheumatic mitral (valve) insufficiency (principal) | CPT/HCPCS: 36415; 80048; 99214 ==

== ENCOUNTER → 2022-05-22 11:03 | Outpatient (BNVA) | payer MEDICARE, SELFPAY | PROVIDERS: PCP Family Medicine; Visit Provider Internal Medicine Cardiovascular Disease | DX: I34.0 Nonrheumatic mitral (valve) insufficiency (principal); I77.9 Disorder of arteries and arterioles, unspecified; E78.5 Hyperlipidemia, unspecified; Z86.73 Personal history of transient ischemic attack (TIA), and cerebral infarction without residual deficits; Z87.891 Personal history of nicotine dependence; Z79.82 Long term (current) use of aspirin | CPT/HCPCS: 99214 ==

== ENCOUNTER → 2023-04-12 14:23 | Outpatient (BNVA) | payer MEDICARE, SELFPAY | PROVIDERS: PCP Family Medicine; Visit Provider Nurse Practitioner | DX: R50.9 Fever, unspecified (principal); J22 Unspecified acute lower respiratory infection | CPT/HCPCS: 87400; 87426 ==

== ENCOUNTER → 2023-04-14 15:14 | Outpatient (BNVA) | payer MEDICARE, SELFPAY | PROVIDERS: PCP Family Medicine; Visit Provider Nurse Practitioner Family | DX: J22 Unspecified acute lower respiratory infection (principal); J40 Bronchitis, not specified as acute or chronic | CPT/HCPCS: 71046 ==

== ENCOUNTER 2023-12-06 13:57 | Emergency (ER) | payer MEDICARE, SELFPAY ==
[2023-12-06] VITALS (17 sets, daily range): BP systolic 125–209; BP diastolic 11–144; PULSE 68–106; RESP 20–33; TEMP 36.5; O2SAT 91–100; BMI 24.4
--- NOTE | 2023-12-06 14:15 | XRR_ITS ---
PROCEDURE INFORMATION: Exam: XR Chest Exam date and time: 12/06/2023 2:49 PM Age: 48 years old Clinical indication: Cough and dyspnea; Additional info: Dyspnea/cough TECHNIQUE: Imaging protocol: Radiologic exam of the chest. Views: 1 view. COMPARISON: CR XR chest 2V* [id number] 04/14/2023 3:24 PM FINDINGS: Lungs: Ground-glass opacities in the right lower lung zone and to a lesser extent left lower lung zone. Pleural spaces: Unremarkable. No pleural effusion. No pneumothorax. Heart/Mediastinum: Borderline apparent cardiomegaly. Bones/joints: Mild degenerative disease of bilateral acromioclavicular joints. XR/XR chest 1V portable [id number] IMPRESSION: Bilateral lower lung zone infiltrates, suggestive of pneumonia.
[2023-12-06] MEDS: iohexol 350 mg/mL 500 mL Btl (per mL) IV (14:21)
--- NOTE | 2023-12-06 14:21 | W.ED.AMS ---
Documented by User: Wilver Bhandari DO 12/08/23 05:29 HPI - Altered Mental Status General: Chief Complaint: Altered Mental Status Stated Complaint: AMS;wound on left leg Time Seen by Provider: 12/06/23 13:59 History of Present Illness: 48-year-old male presents to the emergency room complaining of altered mental status from home. Patient has a large dry eschar on the left anterior tibia from scraping on his bike pedal a week ago. Family members at the scene stated he has been altered with poor mentation as well as being short of breath EMS states that they had an at 88% on room air Related Data Home Medications Medication Instructions Recorded Confirmed atorvastatin 40 mg tablet 40 mg PO DAILY 11/01/21 04/14/23 carbamazepine 200 mg tablet 400 mg PO BID 11/01/21 04/14/23 citalopram 20 mg tablet 20 mg PO DAILY 05/22/22 04/14/23 Previous Rx's Medication Instructions Recorded doxycycline hyclate 100 mg capsule 100 mg PO BID #14 caps 04/12/23 prednisone 20 mg tablet 20 mg PO DAILY #6 tabs 04/12/23 promethazine-DM 6.25 mg-15 mg/5 mL 5 ml PO Q6H PRN cough #200 mL 04/12/23 oral syrup albuterol sulfate 90 mcg/actuation 2 puff inhalation Q6H #8.5 grams 04/14/23 aerosol inhaler Allergies Allergy/AdvReac Type Severity Reaction Status Date / Time biaxin Allergy Unknown Unknown Uncoded 04/14/23 14:50 Erythromycin Allergy Unknown Unknown Uncoded 04/14/23 14:50 Review of Systems Const: Denies: fever(s) or chills Card: Denies: chest pain Resp: Denies: dyspnea GI: Denies: abdominal pain : Denies: dysuria, urinary frequency or urinary urgency Musc: Denies: neck pain or back pain Skin/Breast: Denies: rash PFSH ED PFSH: Medical History Heart valve vegetation Easy bruising Stroke Epilepsy Surgical History History of orthopedic surgery Family History Grandfather CAD (coronary artery disease) Chronic kidney disease (CKD) Stroke Family/Other CAD (coronary artery disease) Cancer Diabetes Grandmother Dementia Denies family history of Clotting disorder Suicide Anesthesia complication Bleeding disorder Lung disease Social History Smoking and tobacco/nicotine status: former use of tobacco/nicotine (quit a month ago ) Alcohol intake: never Substance/Drug Use: never Physical Exam Const: EXAM LIMITATIONS: altered mental status GENERAL APPEARANCE: cooperative ORIENTATION/CONSCIOUSNESS: Yes awake HENMT: COMMON NORMALS: normocephalic, atraumatic and hearing grossly normal bilaterally HEAD & SCALP: normocephalic and atraumatic Resp: COMMON NORMALS: normal respiratory effort, No retractions, No use of accessory muscles and clear to auscultation bilaterally AUSCULTATION: clear to auscultation bilaterally Cardio: COMMON NORMALS: regular rate, regular rhythm and No murmurs present (Cardio) RATE: regular rate RHYTHM: regular rhythm GI: COMMON NORMALS: Soft to palpation and No hepatosplenomegaly present AUSCULTATION: Yes normoactive bowel sounds PALPATION: Yes Soft to palpation, No Tenderness to palpation present (GI), No Guarding due to palpation present (GI) and Yes No hepatosplenomegaly present Extremity: COMMON NORMALS: normal to inspection, capillary refill normal, no clubbing, cyanosis or edema, no calf tenderness and no pedal edema Skin: COMMON NORMALS: no rashes or lesions noted GENERAL SKIN EXAM: no rashes or lesions noted Course Vital Signs: Vital signs: Vital Signs Temperature 97.7 F 12/06/23 13:59 Pulse Rate 68 12/06/23 21:43 Respiratory Rate 23 H 12/06/23 21:25 Blood Pressure 125/72 12/06/23 21:43 Pulse Oximetry 100 12/06/23 21:43 Oxygen Delivery Me thod Mechanical Ventil ation 12/06/23 20:25 Fraction of Inspir ed Oxygen 70 12/06/23 18:50 MDM - Altered Mental Status Medical Decision Making Care signed out to Dr. Ferris at change of shift. See final notes for diagnosis and disposition. Medical Records I reviewed the patient's medical records. Lab Data I reviewed the patient's lab results. 12/06/23 14:19 12/06/23 14:19 Radiology Impressions Abdomen/Pelvis CT 12/06/23 15:01 IMPRESSION: 1. Bilateral lower lobe nodular infiltrates, consistent with multilobar pneumonia. 2. Cholelithiasis with no changes of acute cholecystitis. Head CT 12/06/23 15:01 IMPRESSION: 1. No acute intracranial findings. 2. Multifocal encephalomalacia as above. Chest X-Ray 12/06/23 19:00 IMPRESSION: 1. Tubes and catheters are appropriately positioned. 2. Persisting interstitial edema Laboratory Results WBC 10.18 10^3/uL (3.29-11.43) 12/06/23 14:19 RBC 3.83 10^6/uL (3.85-5.65) L 12/06/23 14:19 Hgb 10.30 g/dL (11.27-16.99) L 12/06/23 14:19 Hct 32.0 % (37-53) L 12/06/23 14:19 MCV 83.6 fl (82-101) 12/06/23 14:19 MCH 26.9 pg (27-33) L 12/06/23 14:19 MCHC 32.2 g/dL (30-55) 12/06/23 14:19 RDW 13.8 % (12.1-15.1) 12/06/23 14:19 Plt Count 84 10^3/cmm (157-399) L 12/06/23 14:19 MPV 12.1 fL (7.4-10.4) H 12/06/23 14:19 Neut % (Auto) 84.0 % 12/06/23 14:19 Lymph % (Auto) 8.9 % 12/06/23 14:19 [place] % (Auto) 6.5 % 12/06/23 14:19 Eos % (Auto) 0.0 % 12/06/23 14:19 Baso % (Auto) 0.2 % 12/06/23 14:19 Neut # (Auto) 8.55 10^3/uL (1.8-7.7) H 12/06/23 14:19 Lymph # (Auto) 0.9 10^3/uL (0.8-4.8) 12/06/23 14:19 [place] # (Auto) 0.7 10^3/uL (0.2-0.9) 12/06/23 14:19 Eos # (Auto) 0.0 10^3/uL (0.0-0.8) 12/06/23 14:19 Baso # (Auto) 0.0 10^3/uL (0.0-0.1) 12/06/23 14:19 Nucleated RBC % (auto) 0 % 12/06/23 14:19 Nucleated RBCs # 0.0 /100WBC 12/06/23 14:19 APTT Cancelled 12/06/23 22:12 Specimen Type Arterial 12/06/23 14:38 Sample Site Radial, left 12/06/23 14:38 ABG pH 7.54 (7.35-7.45) H 12/06/23 14:38 ABG pCO2 22.0 mmHg (35-45) L 12/06/23 14:38 ABG pO2 84.2 mmHg (80.0-100.0) 12/06/23 14:38 ABG PO2/FiO2 Ratio 400 12/06/23 14:38 ABG HCO3 18.8 mmol/L (22-26) L 12/06/23 14:38 ABG O2 Saturation 97.9 12/06/23 14:38 ABG Base Excess -2.5 mmol/L (-2.0-2.0) L 12/06/23 14:38 Shamir Test pos 12/06/23 14:38 A-a O2 Gradient 4.6 mmHg (5-10) L 12/06/23 14:38 Hematocrit 29.9 % (42-52) L 12/06/23 14:38 Hgb O2 Saturation 95.2 % (95-100) 12/06/23 14:38 Carboxyhemoglobin 1.9 %THgb (0.4-20.1) 12/06/23 14:38 Methemoglobin 0.9 % (0.4-1.5) 12/06/23 14:38 Total Hemoglobin 9.8 g/dL (14-18) L 12/06/23 14:38 Sodium 138.0 mmol/L (131-143) 12/06/23 14:38 Potassium 3.5 mmol/L (3.5-5.0) 12/06/23 14:38 Glucose 145.0 mg/dL (70-115) H 12/06/23 14:38 Ionized Calcium 1.1 mmol/L (1.1-1.4) 12/06/23 14:38 O2 Delivery Device Ra 12/06/23 14:38 FiO2 21.0 % 12/06/23 14:38 Specimen Drawn By Shauna 12/06/23 14:38 Water Pump Operator ID Shauna 12/06/23 14:38 Sodium 138 mmol/L (136-145) 12/06/23 14:19 Potassium 3.8 mmol/L (3.5-5.1) 12/06/23 14:19 Chloride 99 mmol/L (98-107) 12/06/23 14:19 Carbon Dioxide 21 mmol/L (22-29) L 12/06/23 14:19 Anion Gap 21.8 (5-19) H 12/06/23 14:19 BUN 58 mg/dL (6-20) H 12/06/23 14:19 Creatinine 3.9 mg/dL (0.7-1.2) H 12/06/23 14:19 GFR Calculation 16.7 mL/min (90-130) L 12/06/23 14:19 Glucose 145 mg/dL (65-115) H 12/06/23 14:19 Calculated Osmolality 305 mOsm/kg (285-295) H 12/06/23 14:19 Lactic Acid 2.5 mmol/L (0.5-2.2) H 12/06/23 14:19 Lactic Acid (Sepsis) 5.0 mmol/L (0.5-2.2) H* 12/06/23 18:26 Calcium 9.6 mg/dL (8.5-10.5) 12/06/23 14:19 Magnesium 2.1 mg/dL (1.7-2.3) 12/06/23 14:19 Total Bilirubin 1.5 mg/dL (0.15-1.2) H 12/06/23 14:19 AST 28 U/L (0-40) 12/06/23 14:19 ALT 18 U/L (0-41) 12/06/23 14:19 Alkaline Phosphatase 108 U/L (40-130) 12/06/23 14:19 Ammonia 22 umol/L (16-60) 12/06/23 14:19 Creatine Kinase 332 U/L (39-308) H* 12/06/23 14:19 Troponin T Baseline 428 ng/L (0-15) H* 12/06/23 14:19 Troponin T 120 Minute 392.0 ng/L (0-15) H 12/06/23 16:07 Delta Troponin T -36.0 ABS# (0-10) L 12/06/23 16:07 Troponin T Hi Sens 6Hr 398.9 ng/L (0-15) H 12/06/23 20:01 Troponin T Hi Sens 6Hr Delta -29.1 ng/L (0-12) L 12/06/23 20:01 NT-Pro-B Natriuret Pep > 25333 pg/mL (0-125) H 12/06/23 14:19 Total Protein 7.2 g/dL (6.6-8.7) 12/06/23 14:19 Albumin 4.3 g/dL (3.5-5.2) 12/06/23 14:19 Globulin 2.9 g/dL (1.3-4.6) 12/06/23 14:19 Lipase 44 U/L (13-60) 12/06/23 14:19 Urine Color Dark yellow (Yellow) A 12/06/23 17:11 Urine Appearance Clear (CLEAR) 12/06/23 17:11 Urine pH 5.5 (5-7) 12/06/23 17:11 Ur Specific [place] 1.041 (1.005-1.030) H 12/06/23 17:11 Urine Protein 4+ (Negative) A 12/06/23 17:11 Urine Glucose (UA) Negative (Normal) 12/06/23 17:11 Urine Ketones Negative (Negative) 12/06/23 17:11 Urine Blood 3+ (Negative) A 12/06/23 17:11 Urine Nitrate Negative (Negative) 12/06/23 17:11 Urine Bilirubin 1+ (Negative) H 12/06/23 17:11 Urine Urobilinogen 1.0 mg/dL (Negative) 12/06/23 17:11 Ur Leukocyte Esterase Negative (Negative) 12/06/23 17:11 Urine RBC 6-10 /hpf (0-2) 12/06/23 17:11 Urine WBC 0-5 /hpf (0-5) 12/06/23 17:11 Ur Squamous Epith Cells 0-5 /hpf (0-5) 12/06/23 17:11 Amorphous Sediment 1+ /hpf 12/06/23 17:11 Urine Bacteria None seen /hpf (NONE) 12/06/23 17:11 Hyaline Casts 39.70 /lpf 12/06/23 17:11 Coarse Granular Casts 0-4 /lpf H 12/06/23 17:11 Urine Opiates Screen Negative ng/mL (Negative) 12/06/23 17:11 Ur Barbiturates Screen Negative ng/mL (Negative) 12/06/23 17:11 Ur Phencyclidine Scrn Negative ng/mL (Negative) 12/06/23 17:11 Ur Amphetamines Screen Negative ng/mL (Negative) 12/06/23 17:11 U Benzodiazepines Scrn Negative ng/mL (Negative) 12/06/23 17:11 Urine Cocaine Screen Negative ng/mL (Negative) 12/06/23 17:11 U Marijuana (THC) Screen Negative ng/mL (Negative) 12/06/23 17:11 Serum Ketones Negative (Negative) 12/06/23 14:19 Discharge Plan Discharge Patient Disposition: Admitted As Inpatient Clinical Impression: Mitral valve regurgitation, Sepsis, Acute hypoxemic respiratory failure, Acute renal failure, Pneumonia Condition: Critical Coding Level of Care Code ED Mental Health Advanced Practice Nurse for [place] Fwd Documented by User: Horacio Ferris DO 12/07/23 16:20 HPI - Altered Mental Status General: Chief Complaint: Altered Mental Status Stated Complaint: AMS;wound on left leg Time Seen by Provider: 12/06/23 13:59 Related Data Home Medications Medication Instructions Recorded Confirmed atorvastatin 40 mg tablet 40 mg PO DAILY 11/01/21 04/14/23 carbamazepine 200 mg tablet 400 mg PO BID 11/01/21 04/14/23 citalopram 20 mg tablet 20 mg PO DAILY 05/22/22 04/14/23 Previous Rx's Medication Instructions Recorded doxycycline hyclate 100 mg capsule 100 mg PO BID #14 caps 04/12/23 prednisone 20 mg tablet 20 mg PO DAILY #6 tabs 04/12/23 promethazine-DM 6.25 mg-15 mg/5 mL 5 ml PO Q6H PRN cough #200 mL 04/12/23 oral syrup albuterol sulfate 90 mcg/actuation 2 puff inhalation Q6H #8.5 grams 04/14/23 aerosol inhaler Allergies Allergy/AdvReac Type Severity Reaction Status Date / Time biaxin Allergy Unknown Unknown Uncoded 04/14/23 14:50 Erythromycin Allergy Unknown Unknown Uncoded 04/14/23 14:50 [facility] ED PFSH: Medical History Heart valve vegetation Easy bruising Stroke Epilepsy Surgical History History of orthopedic surgery Family History Grandfather CAD (coronary artery disease) Chronic kidney disease (CKD) Stroke Family/Other CAD (coronary artery disease) Cancer Diabetes Grandmother Dementia Denies family history of Clotting disorder Suicide Anesthesia complication Bleeding disorder Lung disease Social History Smoking and tobacco/nicotine status: former use of tobacco/nicotine (quit a month ago ) Alcohol intake: never Substance/Drug Use: never Procedures Central Line Placement Right IJ: Time Out Performed: Yes Patient Placed on Monitor/Pulse Ox: Yes MD Prep: mask, gown and gloves Central Line Prep: Chlorhexidine scrub Local Anesthetic: lidocaine 1% Amount of anesthesia used (mL): 3 Ultrasound Used for Placement: Yes Central Line Lumen Inserted: triple Post Procedure: sutured in place, good blood return, all ports aspirated, flushed, capped and sterile dressing applied Post Procedure X-Ray: tip of catheter in good position and no pneumothorax seen Patient Tolerated Procedure: well and no complications Complications: none Intubation Time out performed: Yes sedative: Etomidate Mg Given: 20 paralytic: Succinylcholine Mg Given: 100 Laryngoscope: fiber optic video scope Assist Device Used: fiber optic device ET Tube Size: 8 ET Tube Uncuffed: No Tube Secured Depth (cm): 25 Tube Secured Location: lips Tube Placement Confirmation: visualized tube passing through cords, equal breath sounds bilaterally, no breath sounds over epigastrium and confirmation by capnometry Patient Tolerated Procedure: well and no complications Intubation Complications: none Course Vital Signs: Vital signs: Vital Signs Temperature 97.7 F 12/06/23 13:59 Pulse Rate 68 12/06/23 21:43 Respiratory Rate 23 H 12/06/23 21:25 Blood Pressure 125/72 12/06/23 21:43 Pulse Oximetry 100 12/06/23 21:43 Oxygen Delivery Me thod Mechanical Ventil ation 12/06/23 20:25 Fraction of Inspir ed Oxygen 70 12/06/23 18:50 MDM - Altered Mental Status Medical Decision Making Care signed out to Dr. Ferris at change of shift. See final notes for diagnosis and disposition. This gentleman checked out at shift change. He is altered mental status. He has cardiomegaly that is new on chest x-ray. He is bilateral lower lung infiltrates which could be pulmonary edema versus pneumonia. On abdominal CT, lower lung infiltrates look more like multi lobar pneumonia. Head CT is negative for acute findings, but does show multifocal encephalomalacia. He has a wound on his leg, that looks only mildly cellulitic. He has not been given a sepsis bolus, though his lactate is elevated, as he is quite hypertensive, with blood pressures in the 180s systolic, and he has evidence of significant heart failure. The patient was given vancomycin and Zosyn after blood cultures. Given the course of his ER stay, he became more agitated, with dysfunction. He kept trying to get out of bed for which some Haldol was ordered. His shortness of breath increased, with respirations in the 40s. With his agitation, worsening mental status, and worsening oxygen status, we performed elective intubation without complication. His blood pressure became as high with agitation as 240 systolic. This is another reason for intervention. Nitroglycerin drip was ordered for blood pressure control. Sedation seemed to mostly take care of his blood pressure issues. Echocardiogram at bedside reveals severe mitral regurgitation, which is not helping his situation in the setting of heart failure on top of acute renal failure and sepsis with pneumonia. Because we do not have CT surgery here, or critical care physician team, we have elected to transfer the patient. I spoke with the critical care physician on-call at [facility] who has agreed to accept patient. ED complicated and critical situation, he will go by air EMS. Lab Data 12/06/23 14:19 12/06/23 14:19 Radiology Impressions Abdomen/Pelvis CT 12/06/23 15:01 IMPRESSION: 1. Bilateral lower lobe nodular infiltrates, consistent with multilobar pneumonia. 2. Cholelithiasis with no changes of acute cholecystitis. Head CT 12/06/23 15:01 IMPRESSION: 1. No acute intracranial findings. 2. Multifocal encephalomalacia as above. Chest X-Ray 12/06/23 19:00 IMPRESSION: 1. Tubes and catheters are appropriately positioned. 2. Persisting interstitial edema Laboratory Results WBC 10.18 10^3/uL (3.29-11.43) 12/06/23 14:19 RBC 3.83 10^6/uL (3.85-5.65) L 12/06/23 14:19 Hgb 10.30 g/dL (11.27-16.99) L 12/06/23 14:19 Hct 32.0 % (37-53) L 12/06/23 14:19 MCV 83.6 fl (82-101) 12/06/23 14:19 MCH 26.9 pg (27-33) L 12/06/23 14:19 MCHC 32.2 g/dL (30-55) 12/06/23 14:19 RDW 13.8 % (12.1-15.1) 12/06/23 14:19 Plt Count 84 10^3/cmm (157-399) L 12/06/23 14:19 MPV 12.1 fL (7.4-10.4) H 12/06/23 14:19 Neut % (Auto) 84.0 % 12/06/23 14:19 Lymph % (Auto) 8.9 % 12/06/23 14:19 [place] % (Auto) 6.5 % 12/06/23 14:19 Eos % (Auto) 0.0 % 12/06/23 14:19 Baso % (Auto) 0.2 % 12/06/23 14:19 Neut # (Auto) 8.55 10^3/uL (1.8-7.7) H 12/06/23 14:19 Lymph # (Auto) 0.9 10^3/uL (0.8-4.8) 12/06/23 14:19 [place] # (Auto) 0.7 10^3/uL (0.2-0.9) 12/06/23 14:19 Eos # (Auto) 0.0 10^3/uL (0.0-0.8) 12/06/23 14:19 Baso # (Auto) 0.0 10^3/uL (0.0-0.1) 12/06/23 14:19 Nucleated RBC % (auto) 0 % 12/06/23 14:19 Nucleated RBCs # 0.0 /100WBC 12/06/23 14:19 APTT Cancelled 12/06/23 22:12 Specimen Type Arterial 12/06/23 14:38 Sample Site Radial, left 12/06/23 14:38 ABG pH 7.54 (7.35-7.45) H 12/06/23 14:38 ABG pCO2 22.0 mmHg (35-45) L 12/06/23 14:38 ABG pO2 84.2 mmHg (80.0-100.0) 12/06/23 14:38 ABG PO2/FiO2 Ratio 400 12/06/23 14:38 ABG HCO3 18.8 mmol/L (22-26) L 12/06/23 14:38 ABG O2 Saturation 97.9 12/06/23 14:38 ABG Base Excess -2.5 mmol/L (-2.0-2.0) L 12/06/23 14:38 Shamir Test pos 12/06/23 14:38 A-a O2 Gradient 4.6 mmHg (5-10) L 12/06/23 14:38 Hematocrit 29.9 % (42-52) L 12/06/23 14:38 Hgb O2 Saturation 95.2 % (95-100) 12/06/23 14:38 Carboxyhemoglobin 1.9 %THgb (0.4-20.1) 12/06/23 14:38 Methemoglobin 0.9 % (0.4-1.5) 12/06/23 14:38 Total Hemoglobin 9.8 g/dL (14-18) L 12/06/23 14:38 Sodium 138.0 mmol/L (131-143) 12/06/23 14:38 Potassium 3.5 mmol/L (3.5-5.0) 12/06/23 14:38 Glucose 145.0 mg/dL (70-115) H 12/06/23 14:38 Ionized Calcium 1.1 mmol/L (1.1-1.4) 12/06/23 14:38 O2 Delivery Device Ra 12/06/23 14:38 FiO2 21.0 % 12/06/23 14:38 Specimen Drawn By Shauna 12/06/23 14:38 Water Pump Operator ID Shauna 12/06/23 14:38 Sodium 138 mmol/L (136-145) 12/06/23 14:19 Potassium 3.8 mmol/L (3.5-5.1) 12/06/23 14:19 Chloride 99 mmol/L (98-107) 12/06/23 14:19 Carbon Dioxide 21 mmol/L (22-29) L 12/06/23 14:19 Anion Gap 21.8 (5-19) H 12/06/23 14:19 BUN 58 mg/dL (6-20) H 12/06/23 14:19 Creatinine 3.9 mg/dL (0.7-1.2) H 12/06/23 14:19 GFR Calculation 16.7 mL/min (90-130) L 12/06/23 14:19 Glucose 145 mg/dL (65-115) H 12/06/23 14:19 Calculated Osmolality 305 mOsm/kg (285-295) H 12/06/23 14:19 Lactic Acid 2.5 mmol/L (0.5-2.2) H 12/06/23 14:19 Lactic Acid (Sepsis) 5.0 mmol/L (0.5-2.2) H* 12/06/23 18:26 Calcium 9.6 mg/dL (8.5-10.5) 12/06/23 14:19 Magnesium 2.1 mg/dL (1.7-2.3) 12/06/23 14:19 Total Bilirubin 1.5 mg/dL (0.15-1.2) H 12/06/23 14:19 AST 28 U/L (0-40) 12/06/23 14:19 ALT 18 U/L (0-41) 12/06/23 14:19 Alkaline Phosphatase 108 U/L (40-130) 12/06/23 14:19 Ammonia 22 umol/L (16-60) 12/06/23 14:19 Creatine Kinase 332 U/L (39-308) H* 12/06/23 14:19 Troponin T Baseline 428 ng/L (0-15) H* 12/06/23 14:19 Troponin T 120 Minute 392.0 ng/L (0-15) H 12/06/23 16:07 Delta Troponin T -36.0 ABS# (0-10) L 12/06/23 16:07 Troponin T Hi Sens 6Hr 398.9 ng/L (0-15) H 12/06/23 20:01 Troponin T Hi Sens 6Hr Delta -29.1 ng/L (0-12) L 12/06/23 20:01 NT-Pro-B Natriuret Pep > 14982 pg/mL (0-125) H 12/06/23 14:19 Total Protein 7.2 g/dL (6.6-8.7) 12/06/23 14:19 Albumin 4.3 g/dL (3.5-5.2) 12/06/23 14:19 Globulin 2.9 g/dL (1.3-4.6) 12/06/23 14:19 Lipase 44 U/L (13-60) 12/06/23 14:19 Urine Color Dark yellow (Yellow) A 12/06/23 17:11 Urine Appearance Clear (CLEAR) 12/06/23 17:11 Urine pH 5.5 (5-7) 12/06/23 17:11 Ur Specific [place] 1.041 (1.005-1.030) H 12/06/23 17:11 Urine Protein 4+ (Negative) A 12/06/23 17:11 Urine Glucose (UA) Negative (Normal) 12/06/23 17:11 Urine Ketones Negative (Negative) 12/06/23 17:11 Urine Blood 3+ (Negative) A 12/06/23 17:11 Urine Nitrate Negative (Negative) 12/06/23 17:11 Urine Bilirubin 1+ (Negative) H 12/06/23 17:11 Urine Urobilinogen 1.0 mg/dL (Negative) 12/06/23 17:11 Ur Leukocyte Esterase Negative (Negative) 12/06/23 17:11 Urine RBC 6-10 /hpf (0-2) 12/06/23 17:11 Urine WBC 0-5 /hpf (0-5) 12/06/23 17:11 Ur Squamous Epith Cells 0-5 /hpf (0-5) 12/06/23 17:11 Amorphous Sediment 1+ /hpf 12/06/23 17:11 Urine Bacteria None seen /hpf (NONE) 12/06/23 17:11 Hyaline Casts 39.70 /lpf 12/06/23 17:11 Coarse Granular Casts 0-4 /lpf H 12/06/23 17:11 Urine Opiates Screen Negative ng/mL (Negative) 12/06/23 17:11 Ur Barbiturates Screen Negative ng/mL (Negative) 12/06/23 17:11 Ur Phencyclidine Scrn Negative ng/mL (Negative) 12/06/23 17:11 Ur Amphetamines Screen Negative ng/mL (Negative) 12/06/23 17:11 U Benzodiazepines Scrn Negative ng/mL (Negative) 12/06/23 17:11 Urine Cocaine Screen Negative ng/mL (Negative) 12/06/23 17:11 U Marijuana (THC) Screen Negative ng/mL (Negative) 12/06/23 17:11 Serum Ketones Negative (Negative) 12/06/23 14:19 All radiology interpretation(s) finalized by discharge Critical Care Time Critical Care Time: Critical Care Time: Yes Total Critical Care Time: 45 Attestation: This case had a high probability of a clinically significant, sudden, or life threatening deterioration of this patient's condition which required my full and direct attention, intervention and personal management. Time is independent of any procedures performed. Discharge Plan Discharge Patient Disposition: Admitted As Inpatient Clinical Impression: Mitral valve regurgitation, Sepsis, Acute hypoxemic respiratory failure, Acute renal failure, Pneumonia Condition: Critical Coding Level of Care Code ED Mental Health Advanced Practice Nurse for [facility] [place]
--- NOTE | 2023-12-06 14:27 | ECG_ITS ---
[facility] Test Date: 2023-12-06 Pat Name: Maikel Collins Department: Room: Gender: Male Client Support Consultant: : [id number] Requested By: Wilver Brizuela Order Number: [id number] Denise MD: Paul Pink M.D. Measurements Intervals [place] Rate: 98 P: 53 IN: 155 QRS: -25 QRSD: 95 T: 64 QT: 370 QTc: 473 Interpretive Statements SINUS RHYTHM POSSIBLE LEFT ATRIAL ENLARGEMENT [-0.1mV P-WAVE IN V1/V2] BORDERLINE LEFT AXIS DEVIATION [QRS AXIS < -20] INCOMPLETE RIGHT BUNDLE BRANCH BLOCK [90+ ms QRS DURATION, TERMINAL R IN V1/V2, 40+ ms S IN I/aVL/V4/V5/V6] MODERATE T-WAVE ABNORMALITY, CONSIDER LATERAL ISCHEMIA [-0.1+ mV T-WAVE IN I/aVL/V5/V6] Compared to ECG 09/11/2021 17:54:49 Incomplete right bundle-branch block now present Possible ischemia now present T-wave abnormality still present Electronically Signed On 12-08-2023 18:51:14 CDT by Paul Pink M.D. [email or web address]
[2023-12-06 14:29] LABS: Basophils % 0.2 %; Lymphocytes # 0.9 10^3/uL (0.8-4.8); Lymphocytes % 8.9 %; Mean Corpuscular HGB Conc 32.2 g/dL (30-55); Mean Corpuscular Hemoglobin 26.9 pg (27-33); Mean Corpuscular Volume 83.6 fl (82-101); Mean Platelet Volume 12.1 fL (7.4-10.4); Monocytes # 0.7 10^3/uL (0.2-0.9); Monocytes % 6.5 %; Neutrophils # 8.55 10^3/uL (1.8-7.7); Nucleated Red Blood Cells % 0 %; Platelet Count 84 10^3/cmm (157-399); Red Blood Count 3.83 10^6/uL (3.85-5.65); Red Cell Distribution Width 13.8 % (12.1-15.1); White Blood Count 10.18 10^3/uL (3.29-11.43)
[2023-12-06] MEDS: sodium chloride 0.9% 1,000 ML 999 ML IV ×3 (14:38→19:44)
[2023-12-06 14:43] LABS: Ketone (Acetest) Serum Negative (Negative)
[2023-12-06 14:44] LABS: Alveolar-Arterial Oxygen Gradi 4.6 mmHg (5-10); Arterial Blood Gas Hematocrit 29.9 % (42-52); Blood Gas Operator Identificat BUSJA; Blood Gas Sample Site Radial, left; Blood Gas Sample Type Arterial; Carboxyhemoglobin 1.9 %THgb (0.4-20.1); HGB O2 Sat 95.2 % (95-100); Ionized Calcium Level - ABG 1.1 mmol/L (1.1-1.4); Methemoglobin 0.9 % (0.4-1.5); Total Hemoglobin 9.8 g/dL (14-18)
[2023-12-06 14:47] LABS: ABG PH Result 7.54 (7.35-7.45); PO2 ABG 84.2 mmHg (80.0-100.0)
[2023-12-06 14:48] LABS: Ammonia 22 umol/L (16-60); Lactic Sepsis W/Reflex 2.5 mmol/L (0.5-2.2)
[2023-12-06 14:48] LABS: Base Excess ABG -2.5 mmol/L (-2.0-2.0); Blood Gas Allen Test pos; HCO3 ABG 18.8 mmol/L (22-26); Oxygen Device RA; Oxygen Saturation ABG 97.9; PO2 FiO2 Ratio Arterial Blood 400
[2023-12-06 14:49] LABS: Alanine Aminotransferase 18 U/L (0-41); Albumin Level 4.3 g/dL (3.5-5.2); Alkaline Phosphatase 108 U/L (40-130); Anion Gap 21.8 (5-19); Aspartate Amino Transferase 28 U/L (0-40); Blood Urea Nitrogen 58 mg/dL (6-20); Calcium 9.6 mg/dL (8.5-10.5); Carbon Dioxide 21 mmol/L (22-29); Chloride 99 mmol/L (98-107); Creatinine Clr Calc Pharmacy 25.7535; Globulin 2.9 g/dL (1.3-4.6); Glomerular Filtration Rate 16.7 mL/min (90-130); Glucose 145 mg/dL (65-115); Lipase 44 U/L (13-60); Magnesium 2.1 mg/dL (1.7-2.3); Osmolality Calculated 305 mOsm/kg (285-295); Potassium 3.8 mmol/L (3.5-5.1); Sodium 138 mmol/L (136-145); Total Bilirubin 1.5 mg/dL (0.15-1.2); Total Protein 7.2 g/dL (6.6-8.7)
[2023-12-06 14:49] LABS: Potassium Level - ABG 3.5 mmol/L (3.5-5.0)
[2023-12-06 14:51] LABS: Troponin(5th) Baseline 428 ng/L (0-15)
[2023-12-06 14:52] LABS: Creatine Phosphokinase 332 U/L (39-308)
[2023-12-06 15:01] LABS: Blood Gas Drawn By BUSJA
--- NOTE | 2023-12-06 15:01 | USCV_ITS ---
Maikel Collins Age: 48 Gender: M : 1975 Exam Date: 12/06/2023 17:11 Ordering Phys: Wilver Bhandari DO Technologist: Mick Thurston [place] [facility] [place]: cardiomegaly BP: 174 / 106 HR: 104 Rhythm: Sinus Technical Quality: Adequate MEASUREMENTS (Male / Female) Normal Values 2D ECHO LV Diastolic Diameter PLAX 4.8 cm 4.2 - 5.9 / 3.9 - 5.3 cm IVS Diastolic Thickness 0.8 cm 0.6 - 1.0 / 0.6 - 0.9 cm IVS Systolic Thickness 1.1 cm LVPW Diastolic Thickness 2.0 cm 0.6 - 1.0 / 0.6 - 0.9 cm LVPW Systolic Thickness 2.0 cm LVOT Diameter 2.0 cm LV Ejection Fraction 2D Teich 31.8 % LV Ejection Fraction MOD 4C 65.8 % LV Ejection Fraction MOD 2C 49.4 % LV Ejection Fraction 2C AL 50.7 % LA Diameter 4.4 cm RA Systolic Volume 4C AL 64.3 ml RA Systolic Volume 4C MOD 63.3 ml LA Sys Volume AL 129.7 cm cubed LA Sys Volume Index AL 64.9 cm cubed/m squared Aorta at Sinotubular Diameter 2.6 cm IVC Diameter 2.7 cm M-MODE LA Ao Ratio MM 1.6 AV Cusp Separation MM 1.5 cm DOPPLER AV Peak Velocity 141.0 cm/s LVOT Peak Velocity 100.0 cm/s AV Area Cont Eq vti 2.5 cm squared AV Area Cont Eq pk 2.3 cm squared MV Peak Velocity 261.0 cm/s MV Area PHT 5.3 cm squared Mitral E to A Ratio 1.3 TV Peak Velocity 339.5 cm/s TR Peak Velocity 409.0 cm/s TR Peak Gradient 66.9 mmHg TR Mean Velocity 272.0 cm/s TR Mean Gradient 34.5 mmHg TR Velocity Time Integral 110.4 cm PV Peak Velocity 74.0 cm/s RV Ejection Time 0.3 s FINDINGS Left Ventricle Left ventricle is normal size. LV systolic function is mildly reduced with EF of 45-50%. Mild global hypokinesis. Right Ventricle Normal in size and function Right Atrium Dilated Left Atrium Severely dilated Mitral Valve Posterior mitral valve prolapse. Mitral valve is thickened. Severe mitral regurgitation. Moderate mitral stenosis with mean gradient of 8 mmHg. Aortic Valve Aortic valve is thickened. No significant stenosis. Moderate aortic regurgitation. Tricuspid Valve Insufficient TR jet to evaluate RVSP Pulmonic Valve Mild to moderate pulmonic regurgitation. Pericardium Normal Aorta Normal in size IVC Dilated CONCLUSIONS LV systolic function is mildly reduced with EF of 45-50%. Severely dilated left atrium Posterior mitral valve prolapse. Severe mitral regurgitation. Moderate mitral stenosis with mean gradient of 8 mmHg. Moderate aortic regurgitation. Mild to moderate pulmonic regurgitation. IVC is dilated Paul Pink MD (Electronically Signed) Final Date: 06 December 2023 17:56 S
--- NOTE | 2023-12-06 15:01 | CTR_ITS ---
PROCEDURE INFORMATION: Exam: CT Abdomen And Pelvis Without Contrast Exam date and time: 12/06/2023 3:11 PM Age: 48 years old Clinical indication: Abdominal pain TECHNIQUE: Imaging protocol: Computed tomography of the abdomen and pelvis without contrast. Radiation optimization: All CT scans at this facility use at least one of these dose optimization techniques: automated exposure control; mA and/or kV adjustment per patient size (includes targeted exams where dose is matched to clinical indication); or iterative reconstruction. COMPARISON: CR (CHEST, ) 12/06/2023 2:49 PM RADIATION DOSE METRICS: Total DLP (mGy-cm): 704.58 FINDINGS: Lungs: There are bilateral lower lobe nodular infiltrates. Liver: Hypodense lesion in segment 7 of the liver measuring 6 mm, too small to characterize. Gallbladder and biliary ducts: Cholelithiasis with no surrounding inflammatory changes suggest acute cholecystitis. Pancreas: Normal. No ductal dilation. Spleen: Normal. No splenomegaly. Adrenal glands: Normal. No mass. Kidneys and ureters: Normal. No hydronephrosis. Stomach and bowel: Unremarkable. No obstruction. No mucosal thickening. Appendix: No evidence of appendicitis. Intraperitoneal space: Unremarkable. No free air. No significant fluid collection. Vasculature: Pelvic phleboliths. Lymph nodes: Unremarkable. No enlarged lymph nodes. Urinary bladder: Unremarkable as visualized. Reproductive: Unremarkable as visualized. Bones/joints: Bilateral L5-S1 assimilation joints. Soft tissues: Fat containing umbilical hernia. CT/CT abdomen pelvis wo con [id number] IMPRESSION: 1. Bilateral lower lobe nodular infiltrates, consistent with multilobar pneumonia. 2. Cholelithiasis with no changes of acute cholecystitis.
--- NOTE | 2023-12-06 15:01 | CTR_ITS ---
PROCEDURE INFORMATION: Exam: CT Head Without Contrast Exam date and time: 12/06/2023 3:06 PM Age: 48 years old Clinical indication: Altered mental status/memory loss; Additional info: AMS TECHNIQUE: Imaging protocol: Computed tomography of the head without contrast. Radiation optimization: All CT scans at this facility use at least one of these dose optimization techniques: automated exposure control; mA and/or kV adjustment per patient size (includes targeted exams where dose is matched to clinical indication); or iterative reconstruction. COMPARISON: MR head wo con* [id number] 12/06/2021 1:01 PM RADIATION DOSE METRICS: Total DLP (mGy-cm): 932.86 FINDINGS: Brain: No acute intracranial hemorrhage, mass effect or midline shift. Multifocal encephalomalacia including at the right frontal and left occipital lobes but also within the right parieto-occipital regions where it is most extensive. No evidence of acute transcortical infarct. Cerebral ventricles: Similar expansion of the ventricles volume loss. Paranasal sinuses: Visualized sinuses are unremarkable. No fluid levels. Mastoid air cells: Visualized mastoid air cells are well aerated. Bones: Unremarkable. No acute fracture. Soft tissues: Unremarkable. CT/CT head wo con* [id number] IMPRESSION: 1. No acute intracranial findings. 2. Multifocal encephalomalacia as above.
[2023-12-06 15:49] LABS: NT Pro B Type Natriuretic Pept > 70000 pg/mL (0-125)
[2023-12-06] MEDS: heparin 5,000 unit/mL INJ 1 mL IVP (16:02)
[2023-12-06] MEDS: LORazepam 2 mg/mL INJ 1 mL 1 MG IVP (16:05)
[2023-12-06 16:12] LABS: Reflex Lactate Order REFLEX LACTIC ORDERD
[2023-12-06] MEDS: heparin drip 25,000 UNIT/500 ML PREMIX 22 UNIT IV (16:12)
--- NOTE | 2023-12-06 16:16 | ECG_ITS ---
[facility] Test Date: 2023-12-06 Pat Name: Maikel Collins Department: Room: Gender: Male Collaborating Supervising Physician: : 1975 Requested By: Wilver Brizuela Order Number: [id number] Denise MD: Paul Pink M.D. Measurements Intervals [place] Rate: 99 P: 58 VA: 154 QRS: -26 QRSD: 97 T: 37 QT: 383 QTc: 493 Interpretive Statements SINUS RHYTHM POSSIBLE LEFT ATRIAL ENLARGEMENT [-0.1mV P-WAVE IN V1/V2] BORDERLINE LEFT AXIS DEVIATION [QRS AXIS < -20] INCOMPLETE RIGHT BUNDLE BRANCH BLOCK [90+ ms QRS DURATION, TERMINAL R IN V1/V2, 40+ ms S IN I/aVL/V4/V5/V6] Compared to ECG 12/06/2023 14:27:25 T-wave abnormality no longer present Possible ischemia no longer present Electronically Signed On 12-08-2023 18:59:02 CDT by Paul Pink M.D. [id number]
[2023-12-06] MEDS: LORazepam 2 mg/mL INJ 1 mL IVP (16:56)
[2023-12-06] MEDS: piperacillin-tazobactam 3.375 GM in sodium chloride 0.9% (plus) 50 ML IV (16:57)
[2023-12-06 17:45] LABS: Bilirubin Urine 1+ (Negative); Blood Urine 3+ (Negative); Glucose Urine UA Negative (Normal); Ketones Urine Negative (Negative); Leukocyte Esterase Urine Negative (Negative); Nitrate Urine Negative (Negative); Protein Urine 4+ (Negative); Urine Appearance Clear (CLEAR); Urine Color Dark Yellow (Yellow); pH Urine 5.5 (5-7)
[2023-12-06] MEDS: vancomycin 1,000 MG in sodium chloride 0.9% 250 ML 250 MG IV (17:45)
[2023-12-06 17:50] LABS: Add Urine Microscopic? YES; Bacteria Urine None Seen /hpf; Squamous Epithelial Cell Urine 0-5 /hpf (0-5); WBC Urine 0-5 /hpf (0-5)
[2023-12-06 17:52] LABS: Amphetamines Screen Urine Negative (Negative); Barbiturates Screen Urine Negative (Negative); Benzodiazepines Screen Urine Negative (Negative); Cocaine Screen Urine Negative (Negative); Opiate Screen Urine Negative (Negative); PCP Screen Urine Negative (Negative); THC Screen Urine Negative (Negative)
[2023-12-06 17:53] LABS: Specific Gravity, Urine 1.041 (1.005-1.030)
[2023-12-06] MEDS: hyDRALAzine 20 mg/mL INJ 1 mL IVP (17:57)
[2023-12-06] MEDS: haloperidol inj 5 mg/mL INJ 1 mL IVP (17:59)
[2023-12-06 18:02] LABS: Amorphous Sediment Urine 1+ /hpf; Coarse Granular Casts Urine 0-4 /lpf; UA Slide Review UA Slide Review Perf
[2023-12-06] MEDS: propofol 1,000 MG/100 ML INJ 23.81 MG IV (18:50)
[2023-12-06] MEDS: midazolam 1 mg/mL INJ 2 mL 4 MG (19:00)
--- NOTE | 2023-12-06 19:00 | XRR_ITS ---
PROCEDURE INFORMATION: Exam: XR Chest Exam date and time: 12/06/2023 7:17 PM Age: 48 years old Clinical indication: Device placement; Other: Central line placement TECHNIQUE: Imaging protocol: Radiologic exam of the chest. Views: 1 view. COMPARISON: CR (CHEST, ) 12/06/2023 2:49 PM FINDINGS: Tubes, catheters and devices: New endotracheal tube ends in the mid clavicles. New nasogastric tube ends in the stomach. New right jugular catheter ends in the right atrium. Lungs: Persisting bilateral hazy streaky opacities along with thickened septal lines. The overall appearance is consistent with interstitial edema. Pleural spaces: No pleural effusion. No pneumothorax. Heart/Mediastinum: Unremarkable. No cardiomegaly. Bones/joints: Unremarkable. XR/XR chest 1V portable [id number] IMPRESSION: 1. Tubes and catheters are appropriately positioned. 2. Persisting interstitial edema
--- NOTE | 2023-12-06 19:07 | PC.NURSE ---
OG tube placed by dayshift nurse Missy BABIN.
--- NOTE | 2023-12-06 19:10 | PC.NURSE ---
Instructed per Dr Ferris at this time to hold on nitro drip.
--- NOTE | 2023-12-06 19:21 | PC.NURSE ---
pt was given 20 of etomodate @ 1837 100 of succs @ 1838 4 versed @ 1841 tube is 24 @ lip
[2023-12-06] MEDS: fentaNYL 1,000 MCG/100 ML BAG 5 MCG IV ×2 (19:30→19:44)
[2023-12-06] MEDS: FUROsemide 10 mg/mL SDV 10mL 80 MG IVP (19:31)
[2023-12-06] MEDS: labetalol 5 mg/mL SDV 20mL 20 MG IVP (19:36)
[2023-12-06] MEDS: succinylcholine 20 mg/mL SDV 10mL 100 MG IV (19:37)
[2023-12-06] MEDS: etomidate 2 mg/mL INJ SDV 10 mL 20 MG IVP (19:37)
--- NOTE | 2023-12-06 20:12 | PC.NURSE ---
This nurse spoke with patient's biological father, Yakov Dominguez Sr, who verified patient's name and ; father was updated on patient status and transfer status. Father states that he lives in [facility] and can be contacted at [phone].
[2023-12-06 20:27] LABS: Troponin 5 6HR Delta -29.1 ng/L (0-12)
[2023-12-06 20:28] LABS: Troponin 5 6HR 398.9 ng/L (0-15)
--- NOTE | 2023-12-06 20:35 | ECG_ITS ---
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 Measurements Intervals [place] Rate: 71 P: 67 [place]: 117 QRS: -14 QRSD: 97 T: -72 QT: 412 QTc: 449 Interpretive Statements SINUS RHYTHM WITH SHORT [place] INTERVAL POSSIBLE LEFT ATRIAL ENLARGEMENT [-0.1mV P-WAVE IN V1/V2] INCOMPLETE RIGHT BUNDLE BRANCH BLOCK [90+ ms QRS DURATION, TERMINAL R IN V1/V2, 40+ ms S IN I/aVL/V4/V5/V6] NONSPECIFIC ST & T-WAVE ABNORMALITY Compared to ECG 12/06/2023 16:30:02 Short [place] interval now present T-wave abnormality now present Electronically Signed On 12-08-2023 18:58:49 CDT by Paul Pink M.D. [id number]
--- NOTE | 2023-12-06 21:06 | PC.NURSE ---
Report was called to Judy Soler RN at [facility]. All questions and concerns were addressed at time of report.
--- NOTE | 2023-12-06 21:22 | PC.NURSE ---
Bedside report given to [employer] crew James Villavicencio; all questions and concerns were addressed at time of report.
--- NOTE | 2023-12-06 21:24 | PC.NURSE ---
1 bottle of propofol sent with [facility] crew James Villavicencio, per request due to low volume on drip, required for transport.
== END 2023-12-06 21:47 | disposition admitted as inpatient to this hospital (09) ==
PROVIDERS: Family Medicine; Emergency Provider Emergency Medicine; PCP Family Medicine
DX: A41.9 Sepsis, unspecified organism (principal); I34.0 Nonrheumatic mitral (valve) insufficiency; J96.01 Acute respiratory failure with hypoxia; N17.9 Acute kidney failure, unspecified; J18.9 Pneumonia, unspecified organism; Z86.73 Personal history of transient ischemic attack (TIA), and cerebral infarction without residual deficits; Z87.891 Personal history of nicotine dependence
CPT/HCPCS: 31500; 36415; 36556; 51702; 70450; 71045; 74176; 80051; 80053; 80306; 81001; 82009; 82140; 82330; 82550; 82805; 83605; 83690; 83735; 83880; 84484; 85025; 87040; 87070; 87205; 93005; 93306; 94799; 96365; 96366; 96367; 96375; 96376; 99291; 99292; J0330; J0360; J1630; J1644; J1940; J2060; J2250; J2543; J2704; J3010; J3370; J3490; J7030; J7050